=== PATIENT | female | born 1955 | race African-American/Black ===

== ENCOUNTER 2025-01-12 08:54 | Outpatient (RCR) | payer MEDICARE, SELFPAY ==
[2025-01-12 09:50] VITALS: BMI 46.7
== END 2025-04-03 09:58 | disposition home or self-care (01) ==
LOC: ANHWOC 08:54
PROVIDERS: Visit Provider Internal Medicine Cardiovascular Disease
DX: I83.023 Varicose veins of left lower extremity with ulcer of ankle (principal)
CPT/HCPCS: 99214; G0463